=== PATIENT | male | born 1990 | race Caucasian/White ===

== ENCOUNTER → 2017-03-02 | Outpatient (CLI) | payer OTHER | LOC: RAD 14:15 | DX: M25.561 Pain in right knee (principal); M25.861 Other specified joint disorders, right knee | CPT/HCPCS: 73560 ==

== ENCOUNTER 2017-05-02 04:13 | Emergency (ER) | payer OTHER ==
[2017-05-02 05:35] LABS: HEMOGLOBIN 14.1 gm/dl (14.0-17.5); RED BLOOD COUNT 5.04 M/UL (4.20-5.50); WHITE BLOOD COUNT 7.3 K/UL (4.5-11.0)
[2017-05-02 05:55] LABS: BUN/CREATININE RATIO 20 (0-10)
== END 2017-05-02 06:13 | disposition home or self-care (01) ==
LOC: ER1 04:13
PROVIDERS: Physician Assistant
DX: N20.1 Calculus of ureter (principal); R10.814 Left lower quadrant abdominal tenderness; F17.210 Nicotine dependence, cigarettes, uncomplicated
CPT/HCPCS: 36415; 80053; 81001; 83690; 85025; 96361; 96374; 96375; 99284; J1885; J2405

== ENCOUNTER 2021-02-21 13:57 | Emergency (ER) | payer OTHER ==
[~2021-02-21 13:57] MED LIST: ZOFRAN4 MG PO
[2021-02-21 16:37] LABS: HEMOGLOBIN 14.2 gm/dl (14.0-17.5); RED BLOOD COUNT 5.17 M/UL (4.20-5.50); WHITE BLOOD COUNT 13.1 K/UL (4.5-11.0)
[2021-02-21 16:45] LABS: BUN/CREATININE RATIO 11 (0-10)
[2021-02-21] MEDS ORDERED: CLINDAMYCIN HC150 MG PO (17:14)
== END 2021-02-21 19:25 | disposition home or self-care (01) ==
LOC: ER1 13:57
PROVIDERS: Physician Assistant
DX: L03.211 Cellulitis of face (principal); F17.210 Nicotine dependence, cigarettes, uncomplicated; Z71.6 Tobacco abuse counseling
CPT/HCPCS: 70487; 80053; 83605; 85025; 87040; 96365; 96366; 99283; J3370; J7030; Q9967